=== PATIENT | male | born 1985 | race Two or more races ===

== ENCOUNTER 2018-10-04 05:04 | Emergency (ER) | payer MEDICAID ==
[~2018-10-04] VITALS: Ht 190.5 cm; Wt 81.6 kg
[2018-10-04] MEDS ORDERED: HYDROCODONE/APAP 10-325 MG TABLET ONE (05:52)
--- NOTE | 2018-10-04 05:55 | NUR ---
Patient discharged to home in stable conditon. Written and verbal after care instructions given. Patient verbalizes understanding of instructions. WALKED OUT OF ER WITH NO DISTRESS NOTED
[2018-10-04 05:56] VITALS: BP 133/75
[2018-10-04] MEDS ORDERED: HYDROCODONE/APAP 10-325 MG TABLET PO ONE (06:00)
== END 2018-10-04 05:57 | disposition home or self-care (01) ==
LOC: ER 05:04
DX: M25.561 Pain in right knee (principal); F17.200 Nicotine dependence, unspecified, uncomplicated
CPT/HCPCS: 73560; A4663